=== PATIENT | male | born 1965 | race African-American/Black ===

== ENCOUNTER 2024-05-02 04:26 | Emergency (ER) | payer OTHER, BC ==
[2024-05-02] MEDS ORDERED: Acetaminophen 325 MG TAB ONE (05:08)
== END 2024-05-02 05:45 | disposition home or self-care (01) ==
LOC: NAV ERS 04:26
DX: S83.91XA Sprain of unspecified site of right knee, initial encounter (principal); I10 Essential (primary) hypertension; W18.31XA Fall on same level due to stepping on an object, initial encounter
CPT/HCPCS: 99284